=== PATIENT | male | born 1950 | race Caucasian/White ===

== ENCOUNTER 2021-03-31 00:37 | Outpatient (CLI) | payer MEDICARE, OTHER, SELFPAY ==
--- NOTE | 2021-03-31 06:45 | DI.CTLCSR_ITS ---
Exam(s) CT CHEST LUNG CANCER SCREEN EXAM: CT CHEST LUNG CANCER SCREEN CLINICAL HISTORY: Screening for lung cancer,former smoker, z87.891. TECHNIQUE: Imaging Protocol: Low Dose Technique CONTRAST MATERIAL: None COMPARISON: No exams were available for comparison FINDINGS: CHEST: LUNGS: There are multiple calcified benign granulomas in the left lung.. Mild benign-appearing incre ased markings in the left lower lobe as well as some atelectasis in left lung base. No pleural effus ions. Also some atelectasis in the right lung base posterior basal segment right lower lobe. No sig nificant right lung nodules evident. No significant focal findings in trachea and mainstem bronchi. MEDIASTINUM: There is no obvious hilar nor mediastinal adenopathy. CARDIAC: Heart size is normal. There is no pericardial effusion.Caliber of the thoracic aorta is wit hin normal limits. OTHER: Bilateral gynecomastia-mild OSSEOUS: No significant osseous lesions.. IMPRESSION: 1. Calcified benign granulomas are noted left lung. 2. No ominous pulmonary nodules. No pleural effusions. No significant intrathoracic adenopathy. 3. Lung RADS Cat 2 - Benign Appearance / Behavior: Nodules with a very low likelihood of becoming a c linically active cancer due to size or lack of growth Lung-RADS 1.0 CATEGORIES: Category 0 - Prior chest CT exam(s) being located for comparison. Category 1 - Annual screening in 12 months. No nodules or definitely benign nodules. Category 2 - Annual screening in 12 months. Benign appearance. Nodules with low likelihood of becomin g active cancer. Category 3 - 6-month follow-up. Probably benign. Short-term follow-up suggested. Nodules with low lik elihood of becoming active cancer. Category 4A - 3-month follow-up and CT/PET if >8 mm in size. Suspicious finding. Findings which requi re additional testing. Category 4B - Findings which require additional testing and tissue sampling. Modifier S- Potentially clinically significant findings (non lung cancer) RADIATION DOSE DELIVERED: 89.09mGy.cm Total DLP 1.84mGy CTDIvol DATA REPOSITORY: All CT scans at this facility are submitted to the National Radiology Data Registry (NRDR) Dose Index Registry (DIR) with the [employer] (ACR). RADIATION OPTIMIZATION: All CT scans at this facility use at least one of these dose optimization te chniques: automated exposure control; mA and/or kV adjustment per patient size (includes targeted exa ms where dose is matched to clinical indication); or iterative reconstruction.
== END 2021-03-31 00:57 ==
PROVIDERS: PCP Student in an Organized Health Care Education/Training Program; Visit Provider Student in an Organized Health Care Education/Training Program
DX: Z12.2 Encounter for screening for malignant neoplasm of respiratory organs (principal); Z87.891 Personal history of nicotine dependence; J98.4 Other disorders of lung
CPT/HCPCS: 71271

== ENCOUNTER 2021-03-31 02:43 | Outpatient (CLI) | payer MEDICARE, OTHER, SELFPAY ==
[2021-03-31 09:16] LABS: HGB 12.2 g/dL (13.5-17.5); MCH 29.6 pg (27.0-33.0); MCHC 32.1 % (32.0-36.0); MCV 92.2 fL (80-95); Platelet Count 323 10^3/uL (130-400); RBC 4.12 10^6/uL (4.36-5.78); RDW 15.9 % (11.8-14.1); RDW-SD 53.3 fL; WBC 5.68 10^3/uL (4.4-10.8)
[2021-03-31 10:21] LABS: ALT 25 U/L (16-63); AST 15 U/L (15-37); Albumin 3.9 g/dL (3.4-5.0); Alkaline Phosphatase 106 U/L (46-116); Anion Gap 7.7 mmol/L (3-11); BUN 18 mg/dL (7-18); Bilirubin, Total 0.4 mg/dL (0.2-1.0); CO2 28.3 mmol/L (21.0-32.0); CREATININE 0.9 mg/dL (0.70-1.30); Calcium 10.6 mg/dL (8.5-10.1); Calculated LDL 95 mg/dL (<100); Chloride 107 mmol/L (98-107); Cholesterol 172 mg/dL (<200); Glucose 89 mg/dL (74-106); HDL Cholesterol 49 mg/dL (40-60); Potassium 4.2 mmol/L (3.5-5.1); Sodium 143 mmol/L (136-145); Total Protein 7.2 g/dL (6.4-8.2); Triglyceride 144 mg/dL (<150)
== END 2021-03-31 02:44 | disposition home or self-care (01) ==
LOC: LBO 02:43
PROVIDERS: PCP Student in an Organized Health Care Education/Training Program; Visit Provider Student in an Organized Health Care Education/Training Program
DX: I10 Essential (primary) hypertension (principal); E87.8 Other disorders of electrolyte and fluid balance, not elsewhere classified
CPT/HCPCS: 36415; 71271; 80053; 80061; 85027

== ENCOUNTER 2021-07-30 00:53 | Outpatient (CLI) | payer MEDICARE, OTHER, SELFPAY ==
--- NOTE | 2021-07-30 08:00 | DI.CT_ITS ---
Exam(s) CT CHEST WO EXAM: CT CHEST WO CLINICAL HISTORY: screenING FOR LUNG CANCER, evaluate for nodules,FORMER SMOKER, Z87.891 TECHNIQUE: Imaging Protocol: Axial computed tomography images with coronal and sagittal reformatted images were created and reviewed COMPARISON: CT CT CHEST LUNG CANCER SCREEN from 03/31/2021 FINDINGS: Tracheobronchial tree: Patent where visualized. Mediastinum and Jocelyn: No dominant adenopathy or fluid collection. Pulmonary parenchyma: No consolidation or dominant measurable mass. Minimal linear atelectasis supervisor cutting department ior lung bases. Mild centrilobular emphysema. Lung Nodules: Multiple calcified pulmonary nodules greatest in left upper lobe. No noncalcified nodu les.. Pleura: No effusion or pneumothorax. Heart: The heart is not dilated. No coronary artery calcifications are seen. Aorta: Thoracic aorta non-dilated. Upper abdomen: Unremarkable. Bones: Degenerative disc changes. Stable accentuation of the thoracic kyphosis in the midthoracic re gion. Soft Tissues: Unremarkable. Heart: The heart is not dilated. Mild coronary artery calcifications are seen. IMPRESSION: No suspicious pulmonary nodules. Lung RADS Cat 1 - Negative: No nodules and definitely benign nodules Lung-RADS 1.0 CATEGORIES: Category 0 - Prior chest CT exam(s) being located for comparison. Category 1 - Annual screening in 12 months. No nodules or definitely benign nodules. Category 2 - Annual screening in 12 months. Benign appearance. Nodules with low likelihood of becomin g active cancer. Category 3 - 6-month follow-up. Probably benign. Short-term follow-up suggested. Nodules with low lik elihood of becoming active cancer. Category 4A - 3-month follow-up and CT/PET if >8 mm in size. Suspicious finding. Findings which requi re additional testing. Category 4B - Findings which require additional testing and tissue sampling. Category 4X - Category 3 or 4 nodules with additional features or imaging findings that increases the suspicion of malignancy. Modifier S- Potentially clinically significant findings (non lung cancer) RADIATION DOSE DELIVERED: 87.84mGy.cm Total DLP 2.21mGy CTDIvol 87.84mGy.cm Total DLP DATA REPOSITORY: All CT scans at this facility are submitted to the National Radiology Data Registry (NRDR) Dose Index Registry (DIR) with the [employer] (ACR). RADIATION OPTIMIZATION: All CT scans at this facility use at least one of these dose optimization te chniques: automated exposure control; mA and/or kV adjustment per patient size (includes targeted exa ms where dose is matched to clinical indication); or iterative reconstruction.
== END 2021-07-30 01:13 ==
PROVIDERS: PCP Student in an Organized Health Care Education/Training Program; Visit Provider Student in an Organized Health Care Education/Training Program
DX: D64.9 Anemia, unspecified (principal); Z85.46 Personal history of malignant neoplasm of prostate; Z87.891 Personal history of nicotine dependence
CPT/HCPCS: 71250

== ENCOUNTER 2021-09-19 09:17 | Outpatient (CLI) | payer MEDICARE, OTHER, SELFPAY ==
[2021-09-19 11:05] LABS: HCT 37.7 % (40.0-50.0); MCH 29.9 pg (27.0-33.0); MCHC 31.8 % (32.0-36.0); Platelet Count 281 10^3/uL (130-400); RBC 4.01 10^6/uL (4.36-5.78); RDW 15.4 % (11.8-14.1); RDW-SD 54.2 fL; WBC 5.38 10^3/uL (4.4-10.8)
== END 2021-09-19 09:18 | disposition home or self-care (01) ==
LOC: LBO 09:19
PROVIDERS: PCP Student in an Organized Health Care Education/Training Program; Visit Provider Student in an Organized Health Care Education/Training Program
DX: I10 Essential (primary) hypertension (principal); D64.9 Anemia, unspecified; K21.9 Gastro-esophageal reflux disease without esophagitis
CPT/HCPCS: 36415; 85027

== ENCOUNTER 2021-10-03 01:09 | Outpatient (CLI) | payer MEDICARE, OTHER, SELFPAY ==
--- NOTE | 2021-10-03 | DI.DEXA_ITS ---
Exam(s) XR DEXA BONE DENSITY W/WO KAREN EXAM: XR DEXA BONE DENSITY W/WO KAREN CLINICAL HISTORY: OTHER SPECIFIED DISORDERS BONE, M85.88, HX OF CANCER TECHNIQUE: HoloCleverlize Horizon C densitometer COMPARISON: CT CT CHEST WO from 07/30/2021 FINDINGS: Lateral view of the thoracic and lumbar spine shows no evidence of compression fractures. There is s table accentuation of the normal thoracic kyphosis when compared with prior chest CT. Bone mineral density measurements of the lumbar spine correspond to a total T-score of -0.4, in the normal range. The L1 and L2 vertebral body show T-score -1.7, in the osteopenic range. Bone mineral density measurements of the left hip correspond to a total T-score of -1.8. The femora l neck T-score is -2.7, in the osteoporotic range.. The right forearm bone mineral density measurements correspond to a T-score of the distal 3rd of neg ative 3.5, in the osteoporotic range.. IMPRESSION: Osteoporosis of the right forearm and left hip. Overall normal bone mineral density of the lumbar s pine.
== END 2021-10-03 01:29 ==
PROVIDERS: PCP Student in an Organized Health Care Education/Training Program; Visit Provider Internal Medicine
DX: M81.0 Age-related osteoporosis without current pathological fracture (principal); M85.88 Other specified disorders of bone density and structure, other site; Z85.46 Personal history of malignant neoplasm of prostate
CPT/HCPCS: 77080

== ENCOUNTER 2022-03-19 02:40 | Outpatient (CLI) | payer MEDICARE, OTHER, SELFPAY ==
[2022-03-19 07:35] LABS: HCT 39.1 % (40.0-50.0); HGB 12.7 g/dL (13.5-17.5); MCH 30.7 pg (27.0-33.0); MCHC 32.5 % (32.0-36.0); MCV 94 fL (80-95); MPV 9.2 fL (8.0-11.0); Platelet Count 337 10^3/uL (130-400); RBC 4.14 10^6/uL (4.36-5.78); RDW 15.6 % (11.8-14.1)
[2022-03-19 08:19] LABS: Anion Gap 7.1 mmol/L (3-11); BUN 23 mg/dL (7-18); CO2 27.9 mmol/L (21.0-32.0); CREATININE 0.9 mg/dL (0.70-1.30); Calcium 11.2 mg/dL (8.5-10.1); Chloride 109 mmol/L (98-107); Estimated GFR 90.18 (mL/min/1.73m2); Glucose 89 mg/dL (74-106); Potassium 4.1 mmol/L (3.5-5.1); Sodium 144 mmol/L (136-145)
== END 2022-03-19 02:41 | disposition home or self-care (01) ==
LOC: LBO 02:40
PROVIDERS: PCP Student in an Organized Health Care Education/Training Program; Visit Provider Student in an Organized Health Care Education/Training Program
DX: D64.9 Anemia, unspecified (principal); I10 Essential (primary) hypertension; K21.9 Gastro-esophageal reflux disease without esophagitis; Z87.891 Personal history of nicotine dependence
CPT/HCPCS: 36415; 80048; 85027

== ENCOUNTER → 2022-04-17 00:43 | Outpatient (CLI) | payer MEDICARE, OTHER, SELFPAY ==
--- NOTE | 2022-04-17 09:50 | DI.CTLCSR_ITS ---
Exam(s) CT CHEST LUNG CANCER SCREEN EXAM: CT CHEST LUNG CANCER SCREEN CLINICAL HISTORY: Screening for lung cancer,FORMER SMOKER, Z87.891. TECHNIQUE: Imaging Protocol: Low Dose Technique CONTRAST MATERIAL: None COMPARISON: CT CT CHEST LUNG CANCER SCREEN from 03/31/[address] CHEST WO from 07/30/2021 FINDINGS: CHEST: LUNGS: There are multiple benign calcified granulomas again noted in the left lung.. There are no ne w ominous pulmonary nodules. There is some platelike atelectasis again noted both lung bases. No ne w confluent infiltrates and there are no pleural effusions. MEDIASTINUM: There is no obvious hilar nor mediastinal adenopathy. CARDIAC: Heart size is normal. There is no pericardial effusion.Caliber of the thoracic aorta is wit hin normal limits. OTHER: No significant adrenal masses evident. OSSEOUS: No significant osseous lesions.. IMPRESSION: 1. No significant pulmonary nodules. No new infiltrates nor pleural effusions. 2. No hilar nor mediastinal adenopathy. 3. Lung RADS Cat 1 - Negative: No nodules and definitely benign nodules Lung-RADS 1.0 CATEGORIES: Category 0 - Prior chest CT exam(s) being located for comparison. Category 1 - Annual screening in 12 months. No nodules or definitely benign nodules. Category 2 - Annual screening in 12 months. Benign appearance. Nodules with low likelihood of becomin g active cancer. Category 3 - 6-month follow-up. Probably benign. Short-term follow-up suggested. Nodules with low lik elihood of becoming active cancer. Category 4A - 3-month follow-up and CT/PET if >8 mm in size. Suspicious finding. Findings which requi re additional testing. Category 4B - Findings which require additional testing and tissue sampling. Category 4X - Category 3 or 4 nodules with additional features or imaging findings that increases the suspicion of malignancy. Modifier S- Potentially clinically significant findings (non lung cancer) RADIATION DOSE DELIVERED: 73.85mGy.cm Total DLP !Error 1.84mGyCTDIvol DATA REPOSITORY: All CT scans at this facility are submitted to the National Radiology Data Registry (NRDR) Dose Index Registry (DIR) with the [employer] (ACR). RADIATION OPTIMIZATION: All CT scans at this facility use at least one of these dose optimization te chniques: automated exposure control; mA and/or kV adjustment per patient size (includes targeted exa ms where dose is matched to clinical indication); or iterative reconstruction.
== END ==
PROVIDERS: PCP Student in an Organized Health Care Education/Training Program; Visit Provider Student in an Organized Health Care Education/Training Program
DX: Z87.891 Personal history of nicotine dependence (principal); Z12.2 Encounter for screening for malignant neoplasm of respiratory organs
CPT/HCPCS: 71271

== ENCOUNTER → 2022-05-15 00:56 | Outpatient (CLI) | payer MEDICARE, OTHER, SELFPAY ==
--- NOTE | 2022-05-15 08:30 | DI.NM_ITS ---
Exam(s) NM BONE SCAN WHOLE BODY GRP EXAM: NM BONE SCAN WHOLE BODY GRP CLINICAL HISTORY: PROSTATE CA WITH METS TO BONE, C61, C79.51. TECHNIQUE: Injected Dose: 25 mCi Tc-99m MDP Delayed Images: 2-3 hours. COMPARISON: CT CT CHEST/ABD/PEL W from 05/15/2022 FINDINGS: There are no prior studies for comparison. The patient reports outside examinations. Should they be come available they may be submitted and an addendum will be issued at that time. Symmetric axial uptake. Bilateral renal excretion is identified. There is increased uptake in the mahendra ulders bilaterally which is likely degenerative. No abnormal signal is seen in the axial or appendic ular skeleton to suggest osseous metastatic disease. IMPRESSION: 1. No definite evidence of osseous metastatic disease. Please correlate with the patient's outside e xaminations and the CT scan of the abdomen and pelvis performed the same day at our institution. DATA REPOSITORY:
[2022-05-15 08:39] LABS: Abs Immature Grans 0.01 10^3/uL (0.0-0.06); Absolute Basophil Count 0.04 10^3/uL (0.0-0.2); Absolute Eosinophil Count 0.13 10^3/uL (0.0-0.7); Absolute Lymphocyte Count 1.17 10^3/uL (1.2-3.4); Absolute Monocyte Count 0.61 10^3/uL (0.1-0.8); Absolute Neutrophil Count 4.02 10^3/uL (1.2-6.7); Basophils % 0.7; Eosinophils % 2.2; HCT 35.7 % (40.0-50.0); HGB 11.5 g/dL (13.5-17.5); Immature Grans % 0.2; Lymphocytes % 19.6; MCH 30.7 pg (27.0-33.0); MCHC 32.2 % (32.0-36.0); MCV 96 fL (80-95); Monocytes % 10.2; Neutrophils % 67.1; Platelet Count 312 10^3/uL (130-400); RBC 3.74 10^6/uL (4.36-5.78); RDW 15.6 % (11.8-14.1); RDW-SD 54.9 fL; WBC 5.98 10^3/uL (4.4-10.8)
[2022-05-15] MEDS: Barium Sulfate 2% W/V-Berry Smoothie 450 ML BTL 900 ML PO (08:48)
[2022-05-15 08:54] LABS: ALT 18 U/L (16-63); AST 13 U/L (15-37); Albumin 3.7 g/dL (3.4-5.0); Alkaline Phosphatase 83 U/L (46-116); Anion Gap 7.2 mmol/L (3-11); BUN 17 mg/dL (7-18); Bilirubin, Total 0.3 mg/dL (0.2-1.0); CO2 27.8 mmol/L (21.0-32.0); CREATININE 0.9 mg/dL (0.70-1.30); Calcium 10.4 mg/dL (8.5-10.1); Chloride 107 mmol/L (98-107); Estimated GFR 89.62 (mL/min/1.73m2); Glucose 101 mg/dL (74-106); Potassium 3.8 mmol/L (3.5-5.1); Sodium 142 mmol/L (136-145); Total Protein 7.2 g/dL (6.4-8.2)
--- NOTE | 2022-05-15 10:42 | DI.CT_ITS ---
Exam(s) CT CHEST/ABD/PEL W EXAM: CT CHEST/ABD/PEL W CLINICAL HISTORY: PROSTATE CA WITH METS TO BONE, C61, C79.51 TECHNIQUE: Imaging Protocol: Axial computed tomography images with coronal and sagittal reformatted images were created and reviewed CONTRAST MATERIAL: Intravenous: Omnipaque 350 contrast volume:100 mL Oral: Yes COMPARISON: CR XR DEXA BONE DENSITY W/WO KAREN from 10/03/[address] CHEST LUNG CANCER SCREEN from 04/17/2022 FINDINGS: CHEST: Tracheobronchial tree: Patent where visualized. Pulmonary parenchyma: No consolidation or dominant measurable mass. Mild emphysematous changes are pr esent in the lungs. There are calcified granulomas present. Visualized thyroid gland: There is a 0.6 cm nodule in the left thyroid gland. No follow-up is recomm ended. Mediastinum and Jocelyn: No dominant adenopathy or fluid collection. The esophagus is unremarkable. Pleura: No effusion or pneumothorax. Heart: The heart is not dilated. No coronary artery calcifications are seen. No pericardial effusion. Pulmonary arteries: No pulmonary emboli are identified. Aorta: Thoracic aorta non-dilated. Lymph nodes: Within normal limits. Soft tissues: Mild gynecomastia. Bones:No lytic or sclerotic lesions are seen. ABDOMEN: Liver: Normal density. There is a tiny hypodensity in the right lobe of the liver. It is too small f or further characterization but likely reflects a small cyst. No suspicious hepatic masses are seen. Portal, Superior Mesenteric, and Splenic Veins: Unremarkable. Gallbladder and Biliary Tract: No radiodense calculus or dilation. Pancreas: Normal density. Pancreatic calcifications are seen which may reflect prior episodes of briggs creatitis. There is a 0.7 cm cyst in the uncinate process. There is a 0.8 cm cyst in the body of th e pancreas. Spleen: Normal. Adrenals: No masses seen. Kidneys: Normal size, contour and axis. No radiodense stones or obstructive uropathy. There are bilat eral renal cysts present. Abdominal Aorta: Abdominal portion non-dilated. Atherosclerosis is present. Bowel: There is no evidence of bowel obstruction. There is diverticulosis seen in the sigmoid colon. There is thickening of the wall of the sigmoid colon. No definite pericolonic inflammatory changes are seen. Appendix is unremarkable. Peritoneal Cavity: No ascites, collection or mesenteric inflammatory response. No free air. Lymph Nodes: Within normal limits. Bones: Within normal limits for the patient's age. There is a deformity of the left pubic bone and i nferior pubic ramus. This may reflect a prior healed fracture. Please correlate clinically. The po ssibility of a metastatic deposit should also be considered. Sclerotic changes are also seen symmetr ically in the pubic rami. The possibility of insufficiency fracture should be considered. Metastati c disease cannot be excluded. Soft Tissues: Unremarkable. PELVIS: Bladder: Symmetric distention, no gross wall thickening. Reproductive Organs: Postsurgical/post therapeutic changes are present. Lymph Nodes: Within normal limits. Bones: Within normal limits. IMPRESSION: 1. No evidence of pulmonary metastatic disease. 2. No evidence of abdominal or pelvic metastatic disease. 3. Areas of sclerosis involving the left pubic bone and the sacrum. Please correlate with the patien t's clinical history. These may represent areas of prior injury but metastatic disease cannot be exc luded. 4. Unremarkable CT scan of the chest. RADIATION DOSE DELIVERED: 1,663.97mGy.cm Total DLP DATA REPOSITORY: All CT scans at this facility are submitted to the National Radiology Data Registry (NRDR) Dose Index Registry (DIR) with the [employer] (ACR). RADIATION OPTIMIZATION: All CT scans at this facility use at least one of these dose optimization te chniques: automated exposure control; mA and/or kV adjustment per patient size (includes targeted exa ms where dose is matched to clinical indication); or iterative reconstruction.
[2022-05-15] MEDS: Omnipaque 350 MG/ML 100 ML BTL IJ (10:53)
[2022-05-18 10:53] LABS: PSA, Ultrasensitive <0.01 ng/mL (<= 6.5)
[2022-05-20 10:27] LABS: Testosterone, Total 10 ng/dL (240-950)
== END ==
PROVIDERS: PCP Student in an Organized Health Care Education/Training Program; Visit Provider Student in an Organized Health Care Education/Training Program
DX: C61 Malignant neoplasm of prostate (principal); C79.51 Secondary malignant neoplasm of bone
CPT/HCPCS: 74177; 78306; 80053; 84153; 84403; 71260; 85025; J3490

== ENCOUNTER 2022-06-02 04:01 | Outpatient (CLI) | payer MEDICARE, OTHER, SELFPAY ==
[2022-06-02 09:39] LABS: Abs Immature Grans 0.01 10^3/uL (0.0-0.06); Absolute Basophil Count 0.04 10^3/uL (0.0-0.2); Absolute Lymphocyte Count 1.24 10^3/uL (1.2-3.4); Absolute Monocyte Count 0.68 10^3/uL (0.1-0.8); Absolute Neutrophil Count 3.81 10^3/uL (1.2-6.7); Basophils % 0.7; Eosinophils % 1.7; HCT 36.5 % (40.0-50.0); HGB 11.9 g/dL (13.5-17.5); Immature Grans % 0.2; Lymphocytes % 21.1; MCH 31.1 pg (27.0-33.0); MCHC 32.6 % (32.0-36.0); MCV 95 fL (80-95); MPV 8.8 fL (8.0-11.0); Monocytes % 11.6; Neutrophils % 64.7; Platelet Count 298 10^3/uL (130-400); RBC 3.83 10^6/uL (4.36-5.78); RDW 15.8 % (11.8-14.1); WBC 5.88 10^3/uL (4.4-10.8)
[2022-06-02 10:09] LABS: ALT 24 U/L (16-63); AST 20 U/L (15-37); Albumin 3.9 g/dL (3.4-5.0); Alkaline Phosphatase 87 U/L (46-116); Anion Gap 8.4 mmol/L (3-11); BUN 19 mg/dL (7-18); Bilirubin, Total 0.3 mg/dL (0.2-1.0); CO2 24.6 mmol/L (21.0-32.0); Calcium 10.3 mg/dL (8.5-10.1); Chloride 108 mmol/L (98-107); Estimated GFR 78.98 (mL/min/1.73m2); Glucose 109 mg/dL (74-106); Potassium 3.9 mmol/L (3.5-5.1); Sodium 141 mmol/L (136-145); Total Protein 7.5 g/dL (6.4-8.2)
[2022-06-03 18:57] LABS: PSA, Ultrasensitive <0.01 ng/mL (<= 6.5)
[2022-06-06 02:02] LABS: Testosterone, Total <7.0 ng/dL (240-950)
== END 2022-06-02 04:02 | disposition home or self-care (01) ==
LOC: LBO 04:01
PROVIDERS: PCP Student in an Organized Health Care Education/Training Program; Visit Provider Internal Medicine
DX: C61 Malignant neoplasm of prostate (principal); C79.51 Secondary malignant neoplasm of bone
CPT/HCPCS: 36415; 80053; 84153; 84403; 85025

== ENCOUNTER 2022-08-25 17:14 | Outpatient (CLI) | payer MEDICARE, SELFPAY ==
[2022-08-25 13:08] LABS: ALT 23 U/L (16-63); AST 17 U/L (15-37); Albumin 3.6 g/dL (3.4-5.0); Alkaline Phosphatase 76 U/L (46-116); Anion Gap 6.3 mmol/L (3-11); BUN 16 mg/dL (7-18); Bilirubin, Total 0.3 mg/dL (0.2-1.0); CO2 26.7 mmol/L (21.0-32.0); CREATININE 0.9 mg/dL (0.70-1.30); Calcium 10.5 mg/dL (8.5-10.1); Chloride 109 mmol/L (98-107); Estimated GFR 89.62 (mL/min/1.73m2); Glucose 100 mg/dL (74-106); Potassium 4.2 mmol/L (3.5-5.1); Sodium 142 mmol/L (136-145)
[2022-08-25 15:52] LABS: Absolute Basophil Count 0.03 10^3/uL (0.0-0.2); Absolute Eosinophil Count 0.08 10^3/uL (0.0-0.7); Absolute Lymphocyte Count 1.29 10^3/uL (1.2-3.4); Absolute Monocyte Count 0.47 10^3/uL (0.1-0.8); Absolute Neutrophil Count 3.69 10^3/uL (1.2-6.7); Basophils % 0.5; Eosinophils % 1.4; HCT 35.8 % (40.0-50.0); HGB 11.6 g/dL (13.5-17.5); Lymphocytes % 23.1; MCH 30.4 pg (27.0-33.0); MCHC 32.4 % (32.0-36.0); MCV 94 fL (80-95); MPV 8.7 fL (8.0-11.0); Monocytes % 8.4; Neutrophils % 66.2; Platelet Count 317 10^3/uL (130-400); RBC 3.81 10^6/uL (4.36-5.78); RDW-SD 51.8 fL; WBC 5.58 10^3/uL (4.4-10.8)
[2022-08-25 15:53] LABS: Abs Immature Grans 0.02 10^3/uL (0.0-0.06); Immature Grans % 0.4
[2022-08-27 22:35] LABS: PSA, Ultrasensitive <0.01 ng/mL (<= 6.5)
[2022-08-31 16:54] LABS: Testosterone, Total <7.0 ng/dL (240-950)
== END 2022-08-25 17:15 | disposition home or self-care (01) ==
LOC: LBO 17:16
PROVIDERS: PCP Student in an Organized Health Care Education/Training Program; Visit Provider Internal Medicine
DX: C61 Malignant neoplasm of prostate (principal); C79.51 Secondary malignant neoplasm of bone
CPT/HCPCS: 36415; 80053; 84153; 84403; 85025

== ENCOUNTER 2022-10-25 16:28 | Emergency (ER) | payer MEDICARE, SELFPAY ==
[2022-10-25 16:33] VITALS: BP 169/80; PULSE 99; RESP 16; TEMP 37.3; O2SAT 97
--- NOTE | 2022-10-25 16:51 | W.ED.GENAD ---
Discharge Plan Disposition Patient Disposition: Home Discharge Details Clinical Impression: Tick bite Primary Care Provider: Winifred Chin ED Provider: Francisco Wheeler Home Meds and New Rx's Prescriptions: No Action calcium carbonate-vitamin D3 [Os-Van 500 + D3] 500 mg(1,250mg) -200 unit tablet 1 tab PO DAILY Lupron Depot (4 month) 30 mg syringe kit 30 mg IM [id number] ferrous gluconate 240 mg (27 mg iron) tablet 240 mg PO DAILY aspirin [Adult Low Dose Aspirin] 81 mg tablet,delayed release (DR/EC) 81 mg PO DAILY alendronate 35 mg tablet 35 mg PO QWEEK Qty: 52 0RF metoprolol succinate 50 mg tablet extended release 24 hr 50 mg PO DAILY Qty: 90 3RF atorvastatin 10 mg tablet 10 mg PO DAILY Qty: 90 3RF pantoprazole 20 mg tablet,delayed release (DR/EC) 20 mg PO DAILY Qty: 90 3RF Rx Instructions: Continue lesser dose amlodipine 5 mg tablet 5 mg PO DAILY Qty: 90 3RF lisinopril 5 mg tablet 5 mg PO DAILY Qty: 90 1RF Rx Instructions: Trial HALF tablet x 1 week, may need 1/2 in am and pm. Discharge Instructions Instructions: Tick Bite (ED) Additional Instructions: To 1 dose of doxycycline which will prophylax against Lyme disease. If you do develop some fevers and chills increased rash. Aches and pains all over and a fever please follow-up primary care doctor Discharge Data Discharge Date/Time-TO BE ENTERED AT DEPARTURE: 10/25/22 17:04 Medical Decision Making tick exposure within 72 hours, no systemic symptoms single dose doxy given in ED HPI General Date/Time Provider Initiated Documentation: 10/25/22 16:51. HPI Narrative: Patient states that he was getting ready to take a shower when he noticed that a tick that was engorged fell off. He has some bruising to the left groin area. He became concerned came to the emergency room He has had no fevers no chills. No myalgia no arthralgias no headaches. He is feeling fine otherwise. The last time he took a shower was 72 hours ago. Related Data Home Medications Medication Instructions Recorded Confirmed aspirin 81 mg tablet,delayed 81 mg PO DAILY 01/02/21 09/13/21 release (Adult Low Dose Aspirin) ferrous gluconate 240 mg (27 mg 240 mg PO DAILY Anemia 01/02/21 09/13/21 iron) tablet calcium carbonate 500 mg-vitamin 1 tab PO DAILY 01/10/21 09/13/21 D3 5 mcg (200 unit) tablet (Os-Van 500 + D3) leuprolide (4 month) 30 mg (4 30 mg IM [id number] 01/10/21 09/13/21 month) intramuscular syringe kit (Lupron Depot) alendronate 35 mg tablet 35 mg PO QWEEK Bone loss #52 tabs 05/14/21 09/13/21 metoprolol succinate 50 mg 50 mg PO DAILY #90 tabs 04/16/22 tablet,extended release 24 hr atorvastatin 10 mg tablet 10 mg PO DAILY #90 tabs 05/18/22 pantoprazole 20 mg tablet,delayed 20 mg PO DAILY #90 tabs 06/04/22 release amlodipine 5 mg tablet 5 mg PO DAILY #90 tabs 08/03/22 lisinopril 5 mg tablet 5 mg PO DAILY #90 tabs 10/14/22 Previous Rx's Medication Instructions Recorded alendronate 35 mg tablet 35 mg PO QWEEK Bone loss #52 tabs 05/14/21 metoprolol succinate 50 mg 50 mg PO DAILY #90 tabs 04/16/22 tablet,extended release 24 hr atorvastatin 10 mg tablet 10 mg PO DAILY #90 tabs 05/18/22 pantoprazole 20 mg tablet,delayed 20 mg PO DAILY #90 tabs 06/04/22 release amlodipine 5 mg tablet 5 mg PO DAILY #90 tabs 08/03/22 lisinopril 5 mg tablet 5 mg PO DAILY #90 tabs 10/14/22 Allergies Allergy/AdvReac Type Severity Reaction Status Date / Time aspirin AdvReac Intermediate high Verified 03/13/22 08:00 doses only - hx of peptic ulcer codeine AdvReac Intermediate n/v Verified 03/13/22 08:00 General Stated Complaint: InsectBite LORI: 4 Review of Systems Narrative: Constitutional negative for fever and chills. Cardiovascular negative respiratory negative GI negative MSK no myalgias arthralgias skin see HPI neuro no headaches psych calm hematological negative PFSH All Active Problems (Updated 10/25/22 @ 16:55 by Francisco Wheeler MD) Tick bite (Acute) Hearing loss (Acute) self-described as severe .. and interested in hearing aides .. 10/2021 task HTN (hypertension) (Chronic) GERD (gastroesophageal reflux disease) (Chronic) Ulcer ID'd, 2016 via EGD; PPI since then. Re-eval PPI use, 01/2021 [ ] Anemia (Chronic) Low HGB per 11/22/20 (11.9, [facility] [place]), 03/2020 (11.6, [place]). Improved 03/31/21 (12.2, [facility]). Is Onc ordering/reviewing? Former smoker (Acute) Quit in 2019, 12-[address] Scan NEG (03/31/21), Annueal Screening. Rheumatoid arthritis (Chronic) Dx @ 18yo w/ severe findings; Remission/stable x years. Prostate cancer (Chronic 01/05/19) Dx 2016, Gleason3+4=7 T3 positive margins, s/p surgery, radiation (40x!). Estab w/ [facility] [place] Onco, 2020. 11/22/20 PSA 0.06, Mets to bone Hyperlipidemia (Acute) Surgical History H/O prostatectomy (~08/2016) in [place] H/O wrist surgery History of tonsillectomy Family History Father Glaucoma Hypertension Osteoarthritis Mother Osteoarthritis Social History Smoking/Tobacco Use Status: Former Tobacco Use Quit Date: 06/07/16 Tobacco: How many years used: 30 Smoking risk assessment performed?: Yes Alcohol Intake: current Alcohol Intake frequency: a few times a week Alcohol type: beer and wine Drug use: Socially Substance use type: marijuana Adopted: No Caregiver/Support person: No Foster care: No Household members: spouse Housing: house Number of Children: 2 number of grandchildren: 1 Communication Needs: Hard of Hearing and Corrective Lenses Education Level: college Do you need help understanding health information?: Never 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 Sexually active: No Do you think of yourself as: straight/heterosexual Current gender identity: male What is your relationship status?: Panel score (0-1 are the most socially isolated patients): 1 What type of physical activity do you participate in: walking and bicycling Duration: 30-45 minutes/day Frequency: daily Seatbelt use: always Helmet use: Yes Do you feel safe at home: Yes Do you feel safe in your relationship?: Yes Exam Narrative Exam Narrative: Awake alert [place] x3 calm no acute distress pleasant cooperative. PERRLA EOMI MMM, normal work of breathing, cap refill normal. Skin. There is some mild erythematous changes to the left groin. This some signs of excoriations. No ticks Neuro grossly intact Course Vital Signs Vital signs: Vital Signs Temperature 37.3 C 10/25/22 16:33 Pulse 99 H 10/25/22 16:33 Respiratory Rate 16 10/25/22 16:33 Blood Pressure 169/80 H 10/25/22 16:33 Pulse Oximetry 97 10/25/22 16:33 Temperature 37.3 C 10/25/22 16:33 Temperature Source Skin 10/25/22 16:33 Pulse 99 H 10/25/22 16:33 Respiratory Rate 16 10/25/22 16:33 Blood Pressure 169/80 H 10/25/22 16:33 Blood Pressure Position Sitting 10/25/22 16:33 Pulse Oximetry 97 10/25/22 16:33 Oxygen Delivery Method Room Air 10/25/22 16:33 Oxygen Flow Rate 0 10/25/22 16:33 Pain Level 0 10/25/22 16:33
[2022-10-25] MEDS: Doxycycline Hyclate 100 MG CAP 200 MG PO (17:04)
== END 2022-10-25 17:04 | disposition home or self-care (01) ==
PROVIDERS: Emergency Provider Emergency Medicine; PCP Student in an Organized Health Care Education/Training Program
DX: S31.154A Open bite of abdominal wall, left lower quadrant without penetration into peritoneal cavity, initial encounter (principal); W57.XXXA Bitten or stung by nonvenomous insect and other nonvenomous arthropods, initial encounter
CPT/HCPCS: 99283

== ENCOUNTER 2022-11-13 01:55 | Outpatient (CLI) | payer MEDICARE, SELFPAY ==
[2022-11-13 08:33] LABS: Abs Immature Grans 0.01 10^3/uL (0.0-0.06); Absolute Basophil Count 0.03 10^3/uL (0.0-0.2); Absolute Eosinophil Count 0.11 10^3/uL (0.0-0.7); Absolute Lymphocyte Count 1.25 10^3/uL (1.2-3.4); Absolute Monocyte Count 0.58 10^3/uL (0.1-0.8); Absolute Neutrophil Count 3.67 10^3/uL (1.2-6.7); Basophils % 0.5; Eosinophils % 1.9; HCT 39.3 % (40.0-50.0); HGB 12.7 g/dL (13.5-17.5); Immature Grans % 0.2; Lymphocytes % 22.1; MCH 30.5 pg (27.0-33.0); MCHC 32.3 % (32.0-36.0); MCV 95 fL (80-95); MPV 8.7 fL (8.0-11.0); Monocytes % 10.3; Platelet Count 312 10^3/uL (130-400); RBC 4.16 10^6/uL (4.36-5.78); RDW 16.2 % (11.8-14.1); WBC 5.65 10^3/uL (4.4-10.8)
[2022-11-13 08:59] LABS: ALT 23 U/L (16-63); AST 19 U/L (15-37); Albumin 3.7 g/dL (3.4-5.0); Alkaline Phosphatase 80 U/L (46-116); Anion Gap 4.9 mmol/L (3-11); BUN 15 mg/dL (7-18); Bilirubin, Total 0.5 mg/dL (0.2-1.0); CO2 28.1 mmol/L (21.0-32.0); Calcium 10.5 mg/dL (8.5-10.1); Chloride 109 mmol/L (98-107); Estimated GFR 78.98 (mL/min/1.73m2); Glucose 98 mg/dL (74-106); Potassium 3.9 mmol/L (3.5-5.1); Sodium 142 mmol/L (136-145); Total Protein 7.5 g/dL (6.4-8.2)
[2022-11-16 12:43] LABS: PSA, Ultrasensitive <0.01 ng/mL (<= 6.5)
[2022-11-17 23:19] LABS: Testosterone, Total 9.9 ng/dL (240-950)
== END 2022-11-13 01:56 | disposition home or self-care (01) ==
PROVIDERS: PCP Student in an Organized Health Care Education/Training Program; Visit Provider Internal Medicine
DX: C61 Malignant neoplasm of prostate (principal); C79.51 Secondary malignant neoplasm of bone
CPT/HCPCS: 36415; 80053; 84153; 84403; 85025

== ENCOUNTER 2023-02-22 09:20 | Outpatient (CLI) | payer MEDICARE, SELFPAY ==
[2023-02-22 07:21] LABS: Abs Immature Grans 0.01 10^3/uL (0.0-0.06); Absolute Basophil Count 0.03 10^3/uL (0.0-0.2); Absolute Eosinophil Count 0.17 10^3/uL (0.0-0.7); Absolute Lymphocyte Count 1.24 10^3/uL (1.2-3.4); Absolute Monocyte Count 0.51 10^3/uL (0.1-0.8); Absolute Neutrophil Count 2.67 10^3/uL (1.2-6.7); Basophils % 0.6; Eosinophils % 3.7; HCT 38.7 % (40.0-50.0); HGB 12.5 g/dL (13.5-17.5); Immature Grans % 0.2; Lymphocytes % 26.8; MCH 30.4 pg (27.0-33.0); MCHC 32.3 % (32.0-36.0); MCV 94 fL (80-95); MPV 8.8 fL (8.0-11.0); Neutrophils % 57.7; Platelet Count 295 10^3/uL (130-400); RBC 4.11 10^6/uL (4.36-5.78); RDW 16.1 % (11.8-14.1); RDW-SD 55.8 fL; WBC 4.63 10^3/uL (4.4-10.8)
[2023-02-22 07:42] LABS: ALT 19 U/L (16-63); AST 15 U/L (15-37); Albumin 3.9 g/dL (3.4-5.0); Alkaline Phosphatase 72 U/L (46-116); Anion Gap 8.2 mmol/L (3-11); BUN 20 mg/dL (7-18); Bilirubin, Total 0.4 mg/dL (0.2-1.0); CO2 25.8 mmol/L (21.0-32.0); CREATININE 0.9 mg/dL (0.70-1.30); Calcium 10.9 mg/dL (8.5-10.1); Chloride 106 mmol/L (98-107); Estimated GFR 89.62 (mL/min/1.73m2); Glucose 104 mg/dL (74-106); Potassium 4.1 mmol/L (3.5-5.1); Sodium 140 mmol/L (136-145); Total Protein 7.1 g/dL (6.4-8.2)
[2023-02-23 17:11] LABS: PSA, Ultrasensitive <0.01 ng/mL (<= 6.5)
[2023-02-25 15:52] LABS: Testosterone, Total 10 ng/dL (240-950)
== END 2023-02-22 09:21 | disposition home or self-care (01) ==
LOC: LBO 09:25
PROVIDERS: PCP Student in an Organized Health Care Education/Training Program; Visit Provider Internal Medicine
DX: C61 Malignant neoplasm of prostate (principal); C79.51 Secondary malignant neoplasm of bone
CPT/HCPCS: 36415; 80053; 84153; 84403; 85025

== ENCOUNTER → 2023-04-23 01:10 | Outpatient (CLI) | payer MEDICARE, SELFPAY ==
--- NOTE | 2023-04-23 06:45 | DI.CTLCSR_ITS ---
Exam(s) CT CHEST LUNG CANCER SCREEN EXAM: CT CHEST LUNG CANCER SCREEN CLINICAL HISTORY: Screening for lung cancer,yearly,former smoker, z87.891 TECHNIQUE: Imaging Protocol: Axial computed tomography images with coronal and sagittal reformatted images were created and reviewed COMPARISON: CT CT CHEST/ABD/PEL W from 05/15/2022 FINDINGS: The examination is limited due to patient motion artifact. Tracheobronchial tree: Patent where visualized. Pulmonary parenchyma: No consolidation or dominant measurable mass. No architectural distortion. Ther e are calcified granuloma seen in the lungs. Lung Nodules: No noncalcified pulmonary nodules. Mediastinum and Jocelyn: No dominant adenopathy or fluid collection. The esophagus is unremarkable. Thyroid gland: Unremarkable. Lymph nodes: Unremarkable. Pleura: No effusion or pneumothorax. Heart: The heart is not dilated. Coronary artery calcification is present. No pericardial effusion. Aorta: Thoracic aorta non-dilated. Upper abdomen: There is a stable cyst in the superior pole of the left kidney. Soft Tissues: Mild bilateral gynecomastia. Bones: Within normal limits. IMPRESSION: 1. Stable calcified granulomas. 2. No noncalcified pulmonary nodules. Lung RADS Cat 2 - Benign Appearance / Behavior: Nodules with a very low likelihood of becoming a clin ically active cancer due to size or lack of growth Lung-RADS 1.0 CATEGORIES: Category 0 - Prior chest CT exam(s) being located for comparison. Category 1 - Annual screening in 12 months. No nodules or definitely benign nodules. Category 2 - Annual screening in 12 months. Benign appearance. Nodules with low likelihood of becomin g active cancer. Category 3 - 6-month follow-up. Probably benign. Short-term follow-up suggested. Nodules with low lik elihood of becoming active cancer. Category 4A - 3-month follow-up and CT/PET if >8 mm in size. Suspicious finding. Findings which requi re additional testing. Category 4B - Findings which require additional testing and tissue sampling. Suspicious finding. Category 4X - Category 3 or 4 nodules with additional features or imaging findings that increases the suspicion of malignancy. Modifier S- Potentially clinically significant finding. (Non lung cancer) RADIATION DOSE DELIVERED: Total DLP Total DLP DATA REPOSITORY: All CT scans at this facility are submitted to the National Radiology Data Registry (NRDR) Dose Index Registry (DIR) with the [employer] (ACR). RADIATION OPTIMIZATION: All CT scans at this facility use at least one of these dose optimization te chniques: automated exposure control; mA and/or kV adjustment per patient size (includes targeted exa ms where dose is matched to clinical indication); or iterative reconstruction.
== END ==
PROVIDERS: PCP Student in an Organized Health Care Education/Training Program; Visit Provider Student in an Organized Health Care Education/Training Program
DX: Z87.891 Personal history of nicotine dependence (principal); Z12.2 Encounter for screening for malignant neoplasm of respiratory organs; R91.8 Other nonspecific abnormal finding of lung field
CPT/HCPCS: 71271

== ENCOUNTER 2023-05-11 02:23 | Outpatient (CLI) | payer MEDICARE, SELFPAY ==
[2023-05-11 08:18] LABS: Abs Immature Grans 0.01 10^3/uL (0.0-0.06); Absolute Basophil Count 0.03 10^3/uL (0.0-0.2); Absolute Lymphocyte Count 1.19 10^3/uL (1.2-3.4); Absolute Monocyte Count 0.62 10^3/uL (0.1-0.8); Absolute Neutrophil Count 3.24 10^3/uL (1.2-6.7); Basophils % 0.6; Eosinophils % 1.9; HCT 36.1 % (40.0-50.0); HGB 11.8 g/dL (13.5-17.5); Immature Grans % 0.2; Lymphocytes % 22.9; MCH 30.8 pg (27.0-33.0); MCHC 32.7 % (32.0-36.0); MCV 94 fL (80-95); MPV 8.9 fL (8.0-11.0); Monocytes % 11.9; Neutrophils % 62.5; Platelet Count 309 10^3/uL (130-400); RBC 3.83 10^6/uL (4.36-5.78); RDW 16.1 % (11.8-14.1); RDW-SD 55.7 fL; WBC 5.19 10^3/uL (4.4-10.8)
[2023-05-11 08:46] LABS: ALT 23 U/L (16-63); AST 17 U/L (15-37); Albumin 3.7 g/dL (3.4-5.0); Alkaline Phosphatase 68 U/L (46-116); Anion Gap 8.8 mmol/L (3-11); BUN 21 mg/dL (7-18); Bilirubin, Total 0.4 mg/dL (0.2-1.0); CO2 25.2 mmol/L (21.0-32.0); CREATININE 1.1 mg/dL (0.70-1.30); Calcium 10.6 mg/dL (8.5-10.1); Chloride 106 mmol/L (98-107); Estimated GFR 70.01 (mL/min/1.73m2); Glucose 109 mg/dL (74-106); Potassium 3.9 mmol/L (3.5-5.1); Sodium 140 mmol/L (136-145); Total Protein 7.2 g/dL (6.4-8.2)
[2023-05-12 18:58] LABS: PSA, Ultrasensitive <0.01 ng/mL (<= 6.5)
[2023-05-15 09:28] LABS: Testosterone, Total <7.0 ng/dL (240-950)
== END 2023-05-11 02:24 | disposition home or self-care (01) ==
PROVIDERS: PCP Student in an Organized Health Care Education/Training Program; Visit Provider Internal Medicine
DX: C61 Malignant neoplasm of prostate (principal); C79.51 Secondary malignant neoplasm of bone
CPT/HCPCS: 36415; 80053; 84153; 84403; 85025

== ENCOUNTER 2023-08-03 03:32 | Outpatient (CLI) | payer MEDICARE, SELFPAY ==
[2023-08-03 08:15] LABS: Abs Immature Grans 0.01 10^3/uL (0.0-0.06); Absolute Basophil Count 0.04 10^3/uL (0.0-0.2); Absolute Eosinophil Count 0.15 10^3/uL (0.0-0.7); Absolute Lymphocyte Count 1.21 10^3/uL (1.2-3.4); Absolute Monocyte Count 0.62 10^3/uL (0.1-0.8); Absolute Neutrophil Count 3.06 10^3/uL (1.2-6.7); Basophils % 0.8; Eosinophils % 2.9; HCT 38.8 % (40.0-50.0); HGB 12.3 g/dL (13.5-17.5); Immature Grans % 0.2; Lymphocytes % 23.8; MCHC 31.7 % (32.0-36.0); MCV 95 fL (80-95); MPV 8.9 fL (8.0-11.0); Monocytes % 12.2; Neutrophils % 60.1; Platelet Count 287 10^3/uL (130-400); RDW 15.6 % (11.8-14.1); RDW-SD 53.9 fL; WBC 5.09 10^3/uL (4.4-10.8)
[2023-08-03 08:29] LABS: ALT 21 U/L (16-63); AST 14 U/L (15-37); Albumin 3.7 g/dL (3.4-5.0); Alkaline Phosphatase 75 U/L (46-116); BUN 22 mg/dL (7-18); Bilirubin, Total 0.3 mg/dL (0.2-1.0); CREATININE 0.9 mg/dL (0.70-1.30); Calcium 10.8 mg/dL (8.5-10.1); Chloride 109 mmol/L (98-107); Estimated GFR 89.07 (mL/min/1.73m2); Glucose 85 mg/dL (74-106); Potassium 4.4 mmol/L (3.5-5.1); Sodium 143 mmol/L (136-145); Total Protein 7.1 g/dL (6.4-8.2)
[2023-08-04 20:26] LABS: PSA, Ultrasensitive <0.01 ng/mL (<= 6.5)
[2023-08-07 03:12] LABS: Testosterone, Total 7.8 ng/dL (240-950)
== END 2023-08-03 03:33 | disposition home or self-care (01) ==
LOC: LBO 03:32
PROVIDERS: PCP Student in an Organized Health Care Education/Training Program; Visit Provider Internal Medicine
DX: C61 Malignant neoplasm of prostate (principal)
CPT/HCPCS: 36415; 80053; 84153; 84403; 85025

== ENCOUNTER 2023-09-23 04:58 | Outpatient (CLI) | payer MEDICARE, SELFPAY ==
[2023-09-23 10:39] LABS: ALT 20 U/L (16-63); AST 16 U/L (15-37); Albumin 4.1 g/dL (3.4-5.0); Alkaline Phosphatase 68 U/L (46-116); Anion Gap 6.2 mmol/L (3-11); BUN 22 mg/dL (7-18); Bilirubin, Total 0.4 mg/dL (0.2-1.0); CO2 28.8 mmol/L (21.0-32.0); Chloride 108 mmol/L (98-107); Estimated GFR 78.49 (mL/min/1.73m2); Glucose 102 mg/dL (74-106); Potassium 4.6 mmol/L (3.5-5.1); Sodium 143 mmol/L (136-145); TSH (W/Ref FT4) 0.82 uIU/mL (0.36-3.74); Total Protein 7.3 g/dL (6.4-8.2)
[2023-09-23 10:52] LABS: Calcium 11.7 mg/dL (8.5-10.1)
[2023-09-23 10:53] LABS: Vitamin D 25 Total 38.6 ng/mL (30-100)
[2023-09-23 19:12] LABS: Parathyroid Hormone,Intact 79 pg/mL (19-88)
== END 2023-09-23 04:59 | disposition home or self-care (01) ==
LOC: LBO 04:59
PROVIDERS: PCP Student in an Organized Health Care Education/Training Program; Visit Provider Student in an Organized Health Care Education/Training Program
DX: E83.52 Hypercalcemia (principal); M81.0 Age-related osteoporosis without current pathological fracture; K21.9 Gastro-esophageal reflux disease without esophagitis; C61 Malignant neoplasm of prostate; C79.51 Secondary malignant neoplasm of bone
CPT/HCPCS: 36415; 80053; 82306; 83970; 84443

== ENCOUNTER 2023-10-26 05:01 | Outpatient (CLI) | payer MEDICARE, SELFPAY ==
[2023-10-26 07:39] LABS: Abs Immature Grans 0.01 10^3/uL (0.0-0.06); Absolute Basophil Count 0.03 10^3/uL (0.0-0.2); Absolute Neutrophil Count 2.94 10^3/uL (1.2-6.7); Basophils % 0.6 %; HCT 38.9 % (40.0-50.0); HGB 12.6 g/dL (13.5-17.5); Immature Grans % 0.2 %; Lymphocytes % 26.6 %; MCHC 32.4 % (32.0-36.0); MCV 96 fL (80-95); MPV 9.1 fL (8.0-11.0); Monocytes % 10.2 %; Neutrophils % 60.4 %; Platelet Count 331 10^3/uL (130-400); RBC 4.07 10^6/uL (4.36-5.78); RDW 15.3 % (11.8-14.1); RDW-SD 54.5 fL; WBC 4.88 10^3/uL (4.4-10.8)
[2023-10-26 08:18] LABS: ALT 19 U/L (16-63); AST 10 U/L (15-37); Albumin 3.9 g/dL (3.4-5.0); Alkaline Phosphatase 67 U/L (46-116); Anion Gap 6.9 mmol/L (3-11); BUN 16 mg/dL (7-18); Bilirubin, Total 0.4 mg/dL (0.2-1.0); CO2 30.1 mmol/L (21.0-32.0); CREATININE 0.8 mg/dL (0.70-1.30); Calcium 10.9 mg/dL (8.5-10.1); Chloride 107 mmol/L (98-107); Estimated GFR 92.29 (mL/min/1.73m2); Glucose 102 mg/dL (74-106); Potassium 4.1 mmol/L (3.5-5.1); Sodium 144 mmol/L (136-145); Total Protein 7.3 g/dL (6.4-8.2)
[2023-10-27 18:50] LABS: PSA, Ultrasensitive <0.01 ng/mL (<= 6.5)
[2023-10-30 17:10] LABS: Testosterone, Total 10 ng/dL (240-950)
== END 2023-10-26 05:02 | disposition home or self-care (01) ==
PROVIDERS: PCP Student in an Organized Health Care Education/Training Program; Visit Provider Internal Medicine
DX: C61 Malignant neoplasm of prostate (principal); C79.51 Secondary malignant neoplasm of bone
CPT/HCPCS: 36415; 80053; 84153; 84403; 85025

== ENCOUNTER 2024-01-21 01:25 | Outpatient (CLI) | payer MEDICARE, SELFPAY ==
[2024-01-21 07:40] LABS: Abs Immature Grans 0.02 10^3/uL (0.0-0.06); Absolute Basophil Count 0.03 10^3/uL (0.0-0.2); Absolute Eosinophil Count 0.15 10^3/uL (0.0-0.7); Absolute Lymphocyte Count 1.29 10^3/uL (1.2-3.4); Absolute Monocyte Count 0.64 10^3/uL (0.1-0.8); Basophils % 0.6 %; Eosinophils % 2.9 %; HCT 34.3 % (40.0-50.0); HGB 11.1 g/dL (13.5-17.5); Immature Grans % 0.4 %; Lymphocytes % 24.7 %; MCH 31.3 pg (27.0-33.0); MCHC 32.4 % (32.0-36.0); MCV 97 fL (80-95); MPV 8.7 fL (8.0-11.0); Monocytes % 12.2 %; Neutrophils % 59.2 %; Platelet Count 284 10^3/uL (130-400); RBC 3.55 10^6/uL (4.36-5.78); RDW 15.9 % (11.8-14.1); RDW-SD 56.9 fL; WBC 5.23 10^3/uL (4.4-10.8)
[2024-01-21 07:50] LABS: Magnesium 1.6 mg/dL (1.8-2.4)
[2024-01-21 07:54] LABS: ALT 23 U/L (16-63); AST 20 U/L (15-37); Albumin 3.7 g/dL (3.4-5.0); Alkaline Phosphatase 76 U/L (46-116); Anion Gap 8.2 mmol/L (3-11); BUN 21 mg/dL (7-18); Bilirubin, Total 0.29 mg/dL (0.2-1.0); CO2 26.8 mmol/L (21.0-32.0); CREATININE 0.9 mg/dL (0.70-1.30); Calcium 10.8 mg/dL (8.5-10.1); Chloride 108 mmol/L (98-107); Estimated GFR 89.07 (mL/min/1.73m2); Glucose 86 mg/dL (74-106); Potassium 4.3 mmol/L (3.5-5.1); Sodium 143 mmol/L (136-145); Total Protein 6.9 g/dL (6.4-8.2)
[2024-01-24 17:53] LABS: PSA, Ultrasensitive <0.01 ng/mL (<= 6.5)
[2024-01-24 18:14] LABS: Lab Add On Test DONE
[2024-01-24 18:47] LABS: FREE T4 1.01 ng/dL (0.76-1.46); TSH 1.14 uIU/Ml (0.36-3.74)
[2024-01-26 14:19] LABS: Testosterone, Total 9.4 ng/dL (240-950)
== END 2024-01-21 01:26 | disposition home or self-care (01) ==
PROVIDERS: PCP Student in an Organized Health Care Education/Training Program; Visit Provider Internal Medicine
DX: Z91.89 Other specified personal risk factors, not elsewhere classified (principal); M81.0 Age-related osteoporosis without current pathological fracture; E83.52 Hypercalcemia; D64.9 Anemia, unspecified; C61 Malignant neoplasm of prostate; C79.51 Secondary malignant neoplasm of bone
CPT/HCPCS: 36415; 80053; 84153; 84403; 83735; 84439; 84443; 85025

== ENCOUNTER 2024-03-16 01:41 | Outpatient (CLI) | payer MEDICARE, SELFPAY ==
--- NOTE | 2024-03-16 13:08 | DI.DEXA_ITS ---
Exam(s) XR DEXA BONE DENSITY W/WO KAREN EXAM: XR DEXA BONE DENSITY W/WO KAREN CLINICAL HISTORY: at risk for osteoporosis,hypogonadism,prostate ca,prison use med affect TECHNIQUE: Hologic Horizon C densitometer analysis of left hip and lumbar spine. Lateral survey im age of the thoracic and lumbar spine. The forearm was not scanned due to history wrist fracture. COMPARISON: CR XR DEXA BONE DENSITY W/WO KAREN from 10/03/[address] CHEST LUNG CANCER SCREEN from 04/23/2023 FINDINGS: Lateral view of the thoracic and lumbar spine shows no evidence of compression fractures. Increase d thoracic kyphosis and slight anterior wedging of midthoracic vertebral bodies, unchanged from prior CT. Bone mineral density measurements of the lumbar spine correspond to a total T-score of -0.7, in the normal range, unchanged from prior. The L1-L2 vertebral bodies are in the osteopenic range. Bone mineral density measurements of the left hip correspond to a total T-score of -2.0, 3 percent d ecrease from prior but not statistically significant. The femoral neck T-score is -2.1, in the oste openic range. IMPRESSION: Normal bone density of the spine. Osteopenia of the hip.
== END 2024-03-16 02:01 ==
LOC: DI 01:41
PROVIDERS: PCP Student in an Organized Health Care Education/Training Program; Visit Provider Student in an Organized Health Care Education/Training Program
DX: Z13.820 Encounter for screening for osteoporosis (principal); M81.0 Age-related osteoporosis without current pathological fracture
CPT/HCPCS: 77080

== ENCOUNTER 2024-04-18 04:26 | Outpatient (CLI) | payer MEDICARE, SELFPAY ==
[2024-04-18 07:17] LABS: Abs Immature Grans 0.01 10^3/uL (0.0-0.06); Absolute Basophil Count 0.03 10^3/uL (0.0-0.2); Absolute Eosinophil Count 0.13 10^3/uL (0.0-0.7); Absolute Lymphocyte Count 1.06 10^3/uL (1.2-3.4); Absolute Neutrophil Count 2.72 10^3/uL (1.2-6.7); Basophils % 0.7 %; Eosinophils % 2.9 %; HCT 35.6 % (40.0-50.0); HGB 11.7 g/dL (13.5-17.5); Immature Grans % 0.2 %; Lymphocytes % 23.8 %; MCH 31.2 pg (27.0-33.0); MCHC 32.9 % (32.0-36.0); MCV 95 fL (80-95); MPV 8.6 fL (8.0-11.0); Monocytes % 11.2 %; Neutrophils % 61.2 %; Platelet Count 259 10^3/uL (130-400); RBC 3.75 10^6/uL (4.36-5.78); RDW 15.5 % (11.8-14.1); RDW-SD 53.9 fL; WBC 4.45 10^3/uL (4.4-10.8)
[2024-04-18 07:35] LABS: Calcium 10.5 mg/dL (8.5-10.1)
[2024-04-18 07:36] LABS: ALT 17 U/L (16-63); AST 16 U/L (15-37); Albumin 3.8 g/dL (3.4-5.0); Alkaline Phosphatase 80 U/L (46-116); Anion Gap 8.5 mmol/L (3-11); BUN 18 mg/dL (7-18); Bilirubin, Total 0.28 mg/dL (0.2-1.0); CO2 26.5 mmol/L (21.0-32.0); Calcium 10.5 mg/dL (8.5-10.1); Chloride 110 mmol/L (98-107); Glucose 95 mg/dL (74-106); Potassium 4.1 mmol/L (3.5-5.1); Sodium 145 mmol/L (136-145)
[2024-04-18 22:36] LABS: Parathyroid Hormone,Intact 101 pg/mL (19-88)
[2024-04-20 14:38] LABS: PSA, Ultrasensitive <0.01 ng/mL (<= 6.5)
[2024-04-21 15:37] LABS: Testosterone, Total 7.9 ng/dL (240-950)
== END 2024-04-18 04:27 | disposition home or self-care (01) ==
PROVIDERS: PCP Student in an Organized Health Care Education/Training Program; Visit Provider Nurse Practitioner
DX: E83.52 Hypercalcemia (principal); M81.0 Age-related osteoporosis without current pathological fracture; D64.9 Anemia, unspecified; C61 Malignant neoplasm of prostate; C79.51 Secondary malignant neoplasm of bone; R23.2 Flushing
CPT/HCPCS: 36415; 80053; 84153; 84403; 82310; 83970; 85025

== ENCOUNTER 2024-07-17 02:47 | Outpatient (CLI) | payer MEDICARE, SELFPAY ==
[2024-07-17 10:22] LABS: Abs Immature Grans 0.02 10^3/uL (0.0-0.06); Absolute Basophil Count 0.02 10^3/uL (0.0-0.2); Absolute Eosinophil Count 0.06 10^3/uL (0.0-0.7); Absolute Lymphocyte Count 1.06 10^3/uL (1.2-3.4); Absolute Neutrophil Count 3.28 10^3/uL (1.2-6.7); Basophils % 0.4 %; Eosinophils % 1.2 %; HCT 35.8 % (40.0-50.0); HGB 11.7 g/dL (13.5-17.5); Immature Grans % 0.4 %; Lymphocytes % 21.5 %; MCHC 32.7 % (32.0-36.0); MCV 95 fL (80-95); MPV 8.9 fL (8.0-11.0); Monocytes % 10.1 %; Neutrophils % 66.4 %; Platelet Count 311 10^3/uL (130-400); RBC 3.78 10^6/uL (4.36-5.78); RDW 16.3 % (11.8-14.1); WBC 4.94 10^3/uL (4.4-10.8)
[2024-07-17 10:41] LABS: ALT 21 U/L (16-63); AST 18 U/L (15-37); Alkaline Phosphatase 79 U/L (46-116); Anion Gap 6.2 mmol/L (3-11); BUN 18 mg/dL (7-18); Bilirubin, Total 0.49 mg/dL (0.2-1.0); CO2 26.8 mmol/L (21.0-32.0); CREATININE 0.9 mg/dL (0.70-1.30); Calcium 10.8 mg/dL (8.5-10.1); Chloride 110 mmol/L (98-107); Estimated GFR 88.51 (mL/min/1.73m2); Glucose 110 mg/dL (74-106); Potassium 3.9 mmol/L (3.5-5.1); Sodium 143 mmol/L (136-145); Total Protein 7.1 g/dL (6.4-8.2)
[2024-07-17 12:19] LABS: Creatinine,Urine 60.92 mg/dL
[2024-07-18 09:58] LABS: Calcium (Random Urine) 10.7 mg/dL (See Note)
[2024-07-19 09:53] LABS: PSA, Ultrasensitive <0.01 ng/mL (<= 6.5)
[2024-07-20 11:37] LABS: Testosterone, Total <7.0 ng/dL (240-950)
== END 2024-07-17 02:48 | disposition home or self-care (01) ==
LOC: LBO 02:47
PROVIDERS: Nurse Practitioner; PCP Student in an Organized Health Care Education/Training Program; Visit Provider Student in an Organized Health Care Education/Training Program
DX: Z91.89 Other specified personal risk factors, not elsewhere classified (principal); M81.0 Age-related osteoporosis without current pathological fracture; E83.52 Hypercalcemia; C61 Malignant neoplasm of prostate; C79.51 Secondary malignant neoplasm of bone; R23.2 Flushing
CPT/HCPCS: 36415; 80053; 84153; 84403; 82340; 82565; 83970; 85025

== ENCOUNTER 2024-08-01 02:05 | Outpatient (CLI) | payer MEDICARE, SELFPAY ==
--- NOTE | 2024-08-01 06:15 | DI.RAD_ITS ---
Exam(s) XR LUMBAR SPINE COMPLETE EXAM: XR LUMBAR SPINE COMPLETE CLINICAL HISTORY: New onset L4-5 pain, eval for mets,low back pain,prostate ca,m54.50,c61. TECHNIQUE: 2D digital imaging was performed. Five views. COMPARISON: CR XR DEXA BONE DENSITY W/WO KAREN from 03/16/2024 FINDINGS: BONES: No fracture or destructive lesion. Vertebral body heights are maintained. Prominent facet h ypertrophy identified from L2-3 through L5-S1.. DISKS: Posterior disc space narrowing at L1 through L3. Mild disc space narrowing at L4-5. Moderate to severe disc space narrowing at L5-S1. ALIGNMENT: Mild spondylolisthesis at L3-4 and L4-5 secondary to facet degenerative changes. SOFT TISSUE: Vascular calcifications. IMPRESSION: Degenerative disc changes and facet degenerative changes from L2-3 through L5-S1. DATA REPOSITORY: RADIATION DOSE DELIVERED:
== END 2024-08-01 02:25 ==
LOC: DI 02:05
PROVIDERS: PCP Family Medicine; Visit Provider Family Medicine
DX: M47.817 Spondylosis without myelopathy or radiculopathy, lumbosacral region (principal); C61 Malignant neoplasm of prostate
CPT/HCPCS: 72110

== ENCOUNTER 2024-10-17 03:33 | Outpatient (CLI) | payer MEDICARE, SELFPAY ==
[2024-10-17 07:54] LABS: Abs Immature Grans 0.02 10^3/uL (0.0-0.06); Absolute Basophil Count 0.04 10^3/uL (0.0-0.2); Absolute Eosinophil Count 0.15 10^3/uL (0.0-0.7); Absolute Neutrophil Count 5.34 10^3/uL (1.2-6.7); Basophils % 0.5 %; Eosinophils % 1.9 %; HCT 37.2 % (40.0-50.0); Immature Grans % 0.3 %; Lymphocytes % 18.9 %; MCHC 32.3 % (32.0-36.0); MCV 93 fL (80-95); MPV 8.8 fL (8.0-11.0); Monocytes % 11.3 %; Neutrophils % 67.1 %; Platelet Count 297 10^3/uL (130-400); RDW 15.7 % (11.8-14.1); RDW-SD 53.9 fL; WBC 7.95 10^3/uL (4.4-10.8)
[2024-10-17 08:30] LABS: ALT 23 U/L (16-63); AST 20 U/L (15-37); Albumin 3.7 g/dL (3.4-5.0); Alkaline Phosphatase 93 U/L (46-116); Anion Gap 4.4 mmol/L (3-11); BUN 26 mg/dL (7-18); Bilirubin, Total 0.3 mg/dL (0.2-1.0); CO2 29.6 mmol/L (21.0-32.0); Calcium 11.4 mg/dL (8.5-10.1); Chloride 107 mmol/L (98-107); Glucose 83 mg/dL (74-106); Potassium 4.5 mmol/L (3.5-5.1); Sodium 141 mmol/L (136-145); Total Protein 7.2 g/dL (6.4-8.2)
[2024-10-19 18:37] LABS: PSA, Ultrasensitive <0.01 ng/mL (<= 6.5)
[2024-10-22 10:18] LABS: Testosterone, Total 8.2 ng/dL (240-950)
== END 2024-10-17 03:34 | disposition home or self-care (01) ==
PROVIDERS: PCP Family Medicine; Visit Provider Nurse Practitioner
DX: C61 Malignant neoplasm of prostate (principal); R23.2 Flushing; C79.51 Secondary malignant neoplasm of bone
CPT/HCPCS: 36415; 80053; 84153; 84403; 85025

== ENCOUNTER 2025-01-16 03:17 | Outpatient (CLI) | payer MEDICARE, SELFPAY ==
[2025-01-16 07:26] LABS: Abs Immature Grans 0.01 10^3/uL (0.0-0.06); HCT 35.7 % (40.0-50.0); HGB 11.3 g/dL (13.5-17.5); Immature Grans % 0.2 %; MCH 29.7 pg (27.0-33.0); MCHC 31.7 % (32.0-36.0); MCV 94 fL (80-95); MPV 8.9 fL (8.0-11.0); Platelet Count 286 10^3/uL (130-400); RBC 3.81 10^6/uL (4.36-5.78); RDW 15.5 % (11.8-14.1); RDW-SD 53.5 fL; WBC 4.18 10^3/uL (4.4-10.8)
[2025-01-16 07:49] LABS: ALT 19 U/L (16-63); AST 16 U/L (15-37); Albumin 3.5 g/dL (3.4-5.0); Alkaline Phosphatase 78 U/L (46-116); Anion Gap 6.4 mmol/L (3-11); BUN 19 mg/dL (7-18); Bilirubin, Total 0.3 mg/dL (0.2-1.0); CO2 27.6 mmol/L (21.0-32.0); Calcium 10.9 mg/dL (8.5-10.1); Chloride 109 mmol/L (98-107); Estimated GFR 88.51 (mL/min/1.73m2); Glucose 97 mg/dL (74-106); Potassium 4.1 mmol/L (3.5-5.1); Sodium 143 mmol/L (136-145); Total Protein 6.9 g/dL (6.4-8.2)
[2025-01-16 08:12] LABS: Vitamin D 25 Total 22 ng/mL (30-100)
[2025-01-16 12:06] LABS: Iron 85 ug/dL (65-175); Total Iron Binding Capacity 342 ug/dL (250-450); Transferrin Sat 25 % (20-55)
== END 2025-01-16 03:18 | disposition home or self-care (01) ==
LOC: LBO 03:18
PROVIDERS: PCP Family Medicine; Visit Provider Family Medicine
DX: E83.52 Hypercalcemia (principal); D64.9 Anemia, unspecified; C61 Malignant neoplasm of prostate
CPT/HCPCS: 36415; 80053; 82306; 84153; 84403; 83540; 83550; 85025

== ENCOUNTER 2025-04-17 00:32 | Outpatient (CLI) | payer MEDICARE, SELFPAY ==
[2025-04-17 07:43] LABS: Abs Immature Grans 0.01 10^3/uL (0.0-0.06); HCT 36.1 % (40.0-50.0); HGB 11.4 g/dL (13.5-17.5); Immature Grans % 0.2 %; MCH 29.2 pg (27.0-33.0); MCHC 31.6 % (32.0-36.0); MCV 93 fL (80-95); MPV 8.3 fL (8.0-11.0); Platelet Count 262 10^3/uL (130-400); RBC 3.90 10^6/uL (4.36-5.78); RDW 15.9 % (11.8-14.1); RDW-SD 54.1 fL; WBC 5.27 10^3/uL (4.4-10.8)
[2025-04-17 08:01] LABS: ALT 20 U/L (16-63); AST 16 U/L (15-37); Albumin 3.7 g/dL (3.4-5.0); Alkaline Phosphatase 85 U/L (46-116); Anion Gap 7.3 mmol/L (3-11); BUN 16 mg/dL (7-18); Bilirubin, Total 0.3 mg/dL (0.2-1.0); CO2 27.7 mmol/L (21.0-32.0); Calcium 10.5 mg/dL (8.5-10.1); Chloride 108 mmol/L (98-107); Glucose 99 mg/dL (74-106); Potassium 4.3 mmol/L (3.5-5.1); Sodium 143 mmol/L (136-145); Total Protein 7.4 g/dL (6.4-8.2)
== END 2025-04-17 00:33 | disposition home or self-care (01) ==
PROVIDERS: PCP Family Medicine; Visit Provider Nurse Practitioner
DX: C61 Malignant neoplasm of prostate (principal); C79.51 Secondary malignant neoplasm of bone; R23.2 Flushing; Z79.818 Long term (current) use of other agents affecting estrogen receptors and estrogen levels; D64.9 Anemia, unspecified
CPT/HCPCS: 36415; 80053; 84153; 84403; 85025